=== PATIENT | male | born 1985 | race Caucasian/White ===

== ENCOUNTER 2017-04-07 09:42 | Emergency (ER) | payer OTHER ==
[2017-04-07 10:45] LABS: HEMOGLOBIN 15.2 gm/dl (14.0-17.5); RED BLOOD COUNT 4.82 M/UL (4.20-5.50); WHITE BLOOD COUNT 10.2 K/UL (4.5-11.0)
[2017-04-07 11:00] LABS: BUN/CREATININE RATIO 13 (0-10)
== END 2017-04-07 15:44 | disposition home or self-care (01) ==
LOC: ER1 09:42
PROVIDERS: Physician Assistant
DX: L02.413 Cutaneous abscess of right upper limb (principal); F17.200 Nicotine dependence, unspecified, uncomplicated; Z88.0 Allergy status to penicillin; Z88.1 Allergy status to other antibiotic agents; Z88.2 Allergy status to sulfonamides; Z88.7 Allergy status to serum and vaccine
CPT/HCPCS: 36415; 80053; 83605; 85025; 87040; 96365; 96375; 99283; J2405; J3370